=== PATIENT | male | born 1930 | race Caucasian/White ===

== ENCOUNTER 2019-10-16 12:46 | Emergency (ER) | payer MEDICARE, MEDICAID ==
[~2019-10-16] VITALS: Ht 172.7 cm; Wt 54.4 kg
[~2019-10-16 12:46] MED LIST: AMLO5TAB PO; TAMS0.4C96 PO
[2019-10-16 12:54] VITALS: BP 117/52
--- NOTE | 2019-10-16 12:54 | NUR ---
Patient ambulated to bed 6 with family. RN evaluating patient at bedside.
--- NOTE | 2019-10-16 13:10 | NUR ---
89/M BIB FAMILY/FRIEND, WAS NOTICED TO HAVE GROSS DARK RED HEMATURIA THIS AM. PT C/O SLIGHT SUPRAPUBIC PAIN UPON PALPATION AND ALSO CHRONIC R HAND PAIN. PT AWAKE AND ALERT, GCS 14 (E3,V5,M6; AT BASELINE), NOTED WITH PERIPHERAL CONTRACTURES/RIGIDITY, MUMBLING SPEECH, WHEELCHAIR-BOUND. RR EVEN AND UNLABORED. ABD SOFT FLAT TENDER ON SUPRAPUBIC. HX BPH, DEPRESSION RX TAMSULOSIN, ASPIRIN, REMERON
--- NOTE | 2019-10-16 13:16 | NUR ---
Dr. Phillips is evaluating the patient at bedside.
--- NOTE | 2019-10-16 13:50 | NUR ---
Pt taken to CT via [facility].
--- NOTE | 2019-10-16 14:03 | NUR ---
PT RETURNED FROM CT VIA [facility].
[2019-10-16 14:15] LABS: APPEARANCE,URINE BLOODY (CLEAR); BILIRUBIN,URINE 2+ (NEGATIVE); BLOOD, URINE 4+ (NEGATIVE); COLOR,URINE RED (YELLOW); LEUKOCYTE ESTERASE ,URINE 3+ (NEGATIVE); NITRITE, URINE POSITIVE (NEGATIVE); UGLUCOSE TRACE (NEGATIVE)
[2019-10-16 14:19] LABS: RBC,URINE TOO NUMEROUS TO COUN /HPF (0-5); URINE AMORPHOUS URATE 1+ /HPF (None Seen)
[2019-10-16] MEDS ORDERED: LEVOFLOXACIN 500 MG TAB PO ONE (14:25)
--- NOTE | 2019-10-16 14:34 | NUR ---
DAUGHTER AT BEDSIDE WITH PT. PT RESTING, ABLE TO VISIT RISE AND FALL OF THE CHEST. WILL CONTINUE TO MONITOR.
[2019-10-16 15:05] VITALS: BP 118/62
--- NOTE | 2019-10-16 15:05 | NUR ---
Patient discharged with v/s stable. Written and verbal after care instructions given and explained. Patient alert, oriented and verbalized understanding of instructions. Wheel Chair Assisted with by DAUGHTER. All questions addressed prior to discharge. ID band removed. Patient advised to follow up with PMD. Rx of DOXYCYCLINE given. Patient educated on indication of medication including possible reaction and side effects. Opportunity to ask questions provided and answered.
--- NOTE | 2019-10-18 15:42 | NUR ---
CALLED AND SPOKE TO PATIENT'S FINISH PATCHER WHO IS PATIENT'S DAUGHTER SHANI. I ADVISED HER THAT WE RECEIVED URINE CULTURE RESULTS AND PT NEEDED A NEW PRESCRIPTION. DR. TORRES ORDERED FOR A NEW PRESCRIPTION FOR CIPRO 500MG BID FOR 10 DAYS. I SPOKE TO DAUGHTER AND FOUND OUT PT WILL BE PLACED ON NEW ANTIBIOTIC. I FOUND OUT PREFERRED PHARMACY FOR PATIENT IS [facility] IN [place]. I CALLED IN PRESCRIPTION TO PHARMACY.
--- NOTE | 2019-10-18 20:56 | NUR ---
RECIEVED URINE CLULTURE FINAL REPORT WITH SUSCEPTIBILITY REPORT FROM LAB. DR IQBAL REVIEWED REPORT. PT DISCHARGED WITH CIPRO ON 10/18/19. PER DR IQBAL, NO NEED FOR F/U CARE AT THIS TIME.
== END 2019-10-16 15:05 | disposition home or self-care (01) ==
LOC: MED 12:46
DX: N39.0 Urinary tract infection, site not specified (principal); Z79.899 Other long term (current) drug therapy
CPT/HCPCS: 81001; 87086; 87186; 99284